=== PATIENT | female | born 1940 | race Two or more races ===

== ENCOUNTER 2024-06-05 13:24 | Emergency (ER) | payer OTHER, MEDICAID ==
[~2024-06-05] VITALS: Ht 167.6 cm; Wt 67.5 kg
[2024-06-05] MEDS: LIDOCAINE 1% HCL (LOCAL ANESTH.) INJ 20ML MDV IJ ONE (13:53)
--- NOTE | 2024-06-05 14:01 | ED.PDOC ---
Justin. trauma (HPI) HPI Comments A 84 YEAR OLD FEMALE PRESENTS TO THE ED WITH COMPLAINT OF LACERATION OF CHIN, RIGHT FOREHEAD AND BILATERAL HANDS AND RIGHT HAND PAIN S/P FALL. PATIENT STATES HE WAS WALKING TO GET HER MAIL EARLIER TODAY AND SHE ACCIDENTALLY FELL FORWARD. PATIENT REPORTS SHE HIT HER HEAD AND CHIN ON THE GROUND. PATIENT STATES SHE SUSTAINED A LACERATION ON HER CHIN, RIGHT FOREHEAD, AND BILATERAL HANDS. BLEEDING IS CONTROLLED AT THIS TIME. PATIENT REPORTS SHE HAS BEEN NOW EXPERIENCING A HEADACHE AND RIGHT HAND PAIN WELL PARENT PATIENT DENIES NECK INJURY, LOC, FEVER, CHILLS, SHORTNESS OF BREATH, CHEST PAIN, ABDOMINAL PAIN, NAUSEA, VOMITING, OR OTHER COMPLAINTS. NO OTHER SYMPTOMS OR MODIFYING FACTORS AT THIS TIME. PATIENT IS ALERT, ORIENTED X 4, AND HAS STEADY GAIT. Chief Complaint: Fall Injury Time Seen by MD: 13:32 Reviewed notes: Nurses Notes, Medications, Allergies Allergies: Coded Allergies: Gabapentin (Verified Allergy, Unknown, 06/05/24) Tetracycline (Verified Allergy, Unknown, 06/05/24) Home Meds Active Scripts Cephalexin Monohydrate (Cephalexin) 500 Mg Cap, 1 CAP PO TID, #30 CAP Prov:RASHMI BREWER 06/05/24 Acetaminophen (Tylenol 8 Hour Arthritis) 650 Mg Tab, 650 MG PO TID, #30 TAB Prov:RASHMI BREWER 06/05/24 Information Source: Patient Mode of Arrival: Wheelchair Severity: Moderate Timing: Hours Duration: Since onset, Hours Prehospital treatment: None Location: (R) Hand, Head (FOREHEAD), Other (CHIN) Location of laceration: Other (CHIN, RIGHT SIDE OF FOREHEAD) Mechanism: Fall Associated signs and symtoms: Headache Past Medical History PAST MEDICAL HISTORY: DM, ESRD, HTN Surgical History: Denies all surgeries ATTRACTION WORKER History: 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 History Family History Family History: Reviewed,noncontributory to illness Social History Smoker: Non-Smoker Alcohol: Denies ETOH Use Drugs: Denies Drug Use Lives In: Home Constitutional: denies: chills, diaphoresis, fatigue, fever, malaise, sweats, weakness, others EENTM: denies: blurred vision, double vision, ear bleeding, ear discharge, ear drainage, ear pain, ear ringing, eye pain, eye redness, hearing loss, mouth pain, mouth swelling, nasal discharge, nose bleeding, nose congestion, nose pain, photophobia, tearing, throat pain, throat swelling, voice changes, others Respiratory: denies: cough, hemoptysis, orthopnea, SOB at rest, shortness of breath, SOB with excertion, stridor, wheezing, others Cardiovascular: denies: chest pain, dizzy spells, diaphoresis, Dyspnea on exertion, edema, irregular heart beat, left arm pain, lightheadedness, palpitations, PND, syncope, others Gastrointestinal: denies: abdomen distended, abdominal pain, blood streaked bowels, constipated, diarrhea, dysphagia, difficulty swallowing, hematemesis, melena, nausea, poor appetite, poor fluid intake, rectal bleeding, rectal pain, vomiting, others Genitourinary: denies: abnormal vagina bleeding, burning, dyspareunia, dysuria, flank pain, frequency, hematuria, incontinence, pain, , vagina discharge, urgency, others Neurological: reports: headache; denies: dizziness, fainting, left sided numbness, left sided weakness, numbness, paresthesia, pre-existing deficit, right sided numbness, right sided weakness, seizure, speech problems, tingling, tremors, weakness, others Musculoskeletal: denies: back pain, gout, joint pain, joint swelling, muscle pain, muscle stiffness, neck pain, others Integumetry: reports: bruises (RIGHT FOREHEAD, CHIN AND BILATERAL DORSAL HAND. ), laceration (LACERATION OF RIGHT FOREHEAD, RIGHT HAND, AND CHIN); denies: change in color, change in hair/nails, dryness, lesions, lumps, rash, wounds, others Allergic/Immunocompromised: denies: Difficulty Healing, Frequent Infections, Hives, Itching, others Hematologic/Lymphatic: denies: anemia, blood clots, easy bleeding, easy bruising, swollen glands, others Endocrine: denies: excessive hunger, excessive sweating, excessive thirst, excessive urination, flushing, intolerance to cold, intolerance to heat, unexplained weight gain, unexplained weight loss, others Psychiatric: denies: anxiety, bipolar disorder, depression, hopeless, panic disorder, schizophrenia, sleepless, suicidal, others All Other Systems: Reviewed and Negative Physical Exam General Appearance: No Apparent Distress, Normal HEENT: Head (RIGHT FOREHEAD CONTUSION AND LACERATION, NO BONY TENDERNESS, SWELLING AND DEFORMITY. ), Normal ENT Inspection, PERRL/EOMI, Pharynx Normal, TMs Normal, Other (TENDERNESS ON LEFT SIDE FACE, NO REDNESS AND DEFORMITY. ) Neck: Full Range of Motion, Non-Tender, Normal, Normal Inspection Respiratory: Chest Non-Tender, Lungs Clear, No Accessory Muscle Use, No Respiratory Distress, Normal Breath Sounds Cardiovascular: No Edema, No JVD, No Murmur, No Gallop, Normal Peripheral Pulses, Regular Rate/Rhythm Breast Exam: Deferred Gastrointestinal: No Organomegaly, Non Tender, No Pulsatile Mass, Normal Bowel Sounds, Soft Genitalia: Deferred Pelvic: Deferred Rectal: Deferred Extremities: No calf tenderness, Normal capillary refill, Normal range of motion, No pedal edema, Tender (AND CONTUSION AND LACERATION BILATERAL DORSAL HAND, NO BONY TENDERNESS AND DEFORMITY. ), Other (NO TENDERNESS AND SWELLING ON RIGHT THUMB, NORMAL ROM. ) Musculoskeletal : Apperance: Normal Neurologic: Alert, vessel specialist II-XII nml as Tested, No Motor Deficits, Normal Affect, Normal Mood, No Sensory Deficits Cerebellar Function: Normal Reflexes: Normal Skin: Bruises (BILATERAL DORSAL HAND, RIGHT FOREHEAD AND CHIN, NO BONY TENDERNESS AND DEFORMITY. ), Dry, Lacerations (LACERATIONS OF BILATERAL HAND 2CM EACH, NO BLEEDING OR FB. LACERATION OF RIGHT FOREHEAD 2CM, AND CHIN 2CM. NO BLEEDING OR FB NOTED.), Warm Peripheral Pulses: 2+ carotid (R), 2+ carotid (L), 2+ Radial (R), 2+ Radial (L) Lymphatic: No Adenopathy Was a procedure done? Was a procedure done?: Yes Sedation Sedation?: No Laceration Repair : Location RIGHT FOREHEAD, BILATERAL HANDS, AND CHIN Length 3CM IRREGULAR RIGHT HAND, LEFT HAND 2CM, 2CM RIGHT FOREHEAD, 2CM CHIN TOTAL 9CM Anesthetic: Lidocaine, Without epi Laceration Repair Prep: Saline, by Irrigation Laceration Repair Wound Comple: epidermis/dermis repair Laceration Repair: Number of sutures (19), Skin, SQ, Size (5-0 ETHILON), Nylon, Simple, Gauze Informed consent obtained: No Risks, benefits, and alternati: Yes Images 1 - 2 - 1 - 2 - Differential Diagnosis Multiple Trauma: Closed Head Injury, Fractures, Cerebral Contusion, Abrasions, Contusion, Laceration Neck Injury: N/A X-Ray, Labs, Meds, VS Vital Signs Date Time Temp Pulse Resp B/P (MAP) Pulse Ox O2 Delivery O2 Flow Rate FiO2 06/05/24 13:43 97.2 90 16 142/70 (94) 90 97.2 06/05/24 13:43 90 16 99 Room Air 06/05/24 13:34 97.2 90 16 142/70 (94) 99 97.2 Current Medications Medications (Trade) Dose Ordered Sig/Ramin Route Start Time Stop Time Status Last Admin Acetaminophen (Tylenol Tablet Or Capsule) 1,000 mg ONCE ONCE PO 06/05/24 14:30 06/05/24 14:32 DC 06/05/24 14:39 EXAM: CT HEAD WITHOUT CONTRAST INDICATION: FALL TECHNIQUE: CT of the head without intravenous contrast. Radiation Dose Information: CT Dose: CTDI volume is 52.91 mGy. Dose-length product is 755.91 mGy*cm The dose indicators for CT are the volume Computed Tomography (CT) Dose Index (CTDIvol) and the Dose Length Product (DLP), and are measured in units of mGy and mGy-cm, respectively. These indicators are not patient dose, but values generated from the CT scanner acquisition factors. The report includes radiation exposure data for exposures received during this examination. COMPARISON: None FINDINGS: There is no evidence of acute intracranial hemorrhage, extra-axial collection, mass effect, midline shift, herniation or hydrocephalus. The ventricles, sulci and cisterns are age appropriate. The woodall-white differentiation is intact. Patchy periventricular and subcortical white matter hypoattenuation is nonspecific but may be related to small vessel ischemic disease. The visualized paranasal sinuses and mastoid air cells are clear. The surrounding soft tissues and osseous structures are unremarkable. IMPRESSION: 1. No acute intracranial hemorrhage 2. No CT findings of territorial ischemia. 3. No CT findings of displaced skull fracture. ATED BY: ANYA HUI Jr., DO DICTATED DATE/TIME: 06/05/241455 SIGNED BY: ANYA HUI Jr., SIGNED DATE/TIME: 06/05/241455 CC: CLINICAL INDICATION: FALL TECHNIQUE: 3 radiographic views of the right hand were obtained. Comparison: None FINDINGS/IMPRESSION: Questionable nondisplaced distal tuft fracture right thumb. Old healed fracture distal ulna. The visualized joint space is well maintained. The alignment is anatomical. There is no radiopaque foreign body. ATED BY: ANYA HUI Jr., DO DICTATED DATE/TIME: 06/05/24 1444 SIGNED BY: ANYA HUI Jr., SIGNED DATE/TIME: 06/05/24 1444 CC: CLINICAL INFORMATION: Fall injury. TECHNIQUE: Axial CT images of the maxillofacial region were obtained without contrast. Coronal and sagittal reformatted images were obtained, reviewed, and stored. One or more of the following dose reduction techniques were used: Automated exposure control. Adjustment of mA and/or kV according to patient size. CTDIvol = 56.4 mGy DLP = 925.01 mGy-cm COMPARISON: None FINDINGS: The pterygoid plates and zygomatic arches are intact. Sinus tsai and orbital tsai are intact. Nasal bones are intact. Acute, comminuted fracture of the left mandibular condyle with mild displaced fracture fragments along the medial aspect of the mandibular condyle near the temporomandibular joint. No pick abnormality identified in the orbits. Globes and orbital structures appear intact. No periorbital or orbital hemorrhage. Bilateral lens prostheses incidentally noted. Paranasal sinuses are clear. There is prominent soft tissue gas in the submandibular tissues likely sequela of laceration adjacent subcutaneous edema, likely ill-defined hemorrhage. Moderate soft tissue swelling and stranding along the right side of the face. IMPRESSION: 1. Acute, comminuted, mildly displaced fracture involving the left mandibular condyle adjacent to the left TMJ. 2. Soft tissue gas, suspected laceration submandibular region. 3. Moderate soft tissue swelling and stranding along the right side of the face. ATED BY: SAULO ESPINO DO DICTATED DATE/TIME: 06/05/24 1503 SIGNED BY: SAULO ESPINO DO SIGNED DATE/TIME: 06/05/24 1503 CC: X-Ray, Labs, Meds, VS Comment EXTERNAL MEDICAL RECORDS REVIEWED: [NONE] INDEPENDENT HISTORIANS: [NONE] SOCIAL DETERMINANTS OF HEALTH: [NONE] LABS ORDERED: NONE REVIEWED AND INTERPRETED RESULTS: NONE IMAGING ORDERED: CT MAXFACE, CT BRAIN, XR HAND RT TREATMENTS ORDERED: TYLENOL 1G PO PROCEDURES PERFORMED: LACERATION REPAIR CRITICAL CARE TIME: NONE I HAVE DISCUSSED THE PATIENT WITH THE ATTENDING PHYSICIAN DR. ROBERT AND HE AGREES WITH THE PATIENT'S PLAN OF CARE AND DISPOSITION. BASED ON HISTORY OF PRESENT ILLNESS, AND PHYSICAL EXAM, PATIENT WILL BE DISCHARGED HOME. DISCUSSED PLAN FOR DISCHARGE HOME WITH RX [[facility]]. MEDICATION WARNINGS GIVEN. SHARED DECISION MAKING: DISCUSSED WITH PATIENT THAT THEIR WORKUP WAS NORMAL. PATIENT INSTRUCTED TO FOLLOW UP WITH PRIMARY CARE PROVIDER IN 1-2 DAYS FOR RE- EVALUATION OF SYMPTOMS. PATIENT VERBALIZES UNDERSTANDING TO RETURN TO ED FOR NEW OR WORSENING SYMPTOMS OR IF FOLLOW UP WITH PCP CANNOT BE OBTAINED. PATIENT FEELS COMFORTABLE GOING HOME AT THIS TIME. ALL QUESTIONS ADDRESSED AT TIME OF DISCHARGE. Images Reviewed?: Images reviewed and evaluated by me Time of 1ST Reevaluation: 15:25 Reevaluation 1ST: Improved Patient Education/Counseling: Diagnosis, Treatment, Need For Follow Up Family Education/Counseling: Diagnosis, Treatment, Need For Follow Up Medical Screening: No EMC Exist At This Time Departure 1 Departure Time of Disposition: 15:25 Impression: Primary Impression: Fracture of left side of mandible Qualified Codes: S02.612A - Fracture of condylar process of left mandible, initial encounter for closed fracture Additional Impressions: Laceration of forehead without complication Qualified Codes: S01.81XA - Laceration without foreign body of other part of head, initial encounter Laceration of right hand Qualified Codes: S61.411A - Laceration without foreign body of right hand, initial encounter Laceration of left hand Qualified Codes: S61.412A - Laceration without foreign body of left hand, initial encounter Laceration of chin Qualified Codes: S01.81XA - Laceration without foreign body of other part of head, initial encounter Status post fall Disposition: HOME / SELF CARE / HOMELESS Condition: Stable Additional Instructions: FOLLOW-UP WITH PCP/ENT IN 1 TO 2 DAYS. TAKE MEDICATIONS PRESCRIBED. RETURN TO ED FOR ANY NEW OR WORSENING SYMPTOMS. e-Prescriptions Cephalexin Monohydrate (Cephalexin) 500 Mg Cap 1 CAP PO TID, #30 CAP Prov: RASHMI BREWER 06/05/24 Acetaminophen (Tylenol 8 Hour Arthritis) 650 Mg Tab 650 MG PO TID, #30 TAB Prov: RASHMI BREWER 06/05/24 Discharged With: Self, Relative Critical Care Note Critical Care Time?: No Stability Stability form required: No I personally scribed for RASHMI BREWER ([email or web address]) on 06/05/24 at 14:01. Electronically submitted by Darrel Menard ([email or web address]). I personally scribed for RASHMI BREWER ([email or web address]) on 06/05/24 at 14:22. Electronically submitted by Darrel Menard ([email or web address]). I personally scribed for RASHMI BREWER ([email or web address]) on 06/05/24 at 14:49. Electronically submitted by Darrel Menard ([email or web address]). I personally scribed for RASHMI BREWER ([email or web address]) on 06/05/24 at 15:11. Electronically submitted by Darrel Menard ([email or web address]). I personally scribed for RASHMI BREWER ([email or web address]) on 06/05/24 at 15:18. Electronically submitted by Darrel Menard ([email or web address]). I personally scribed for RASHMI BREWER ([email or web address]) on 06/05/24 at 15:23. Electronically submitted by Darrel Menard ([email or web address]). RASHMI BREWER Jun 05, 2024 14:01
[2024-06-05] MEDS: ACETAMINOPHEN 500 MG TAB or CAP PO ONE (14:39)
--- NOTE | 2024-06-05 14:47 | DVH ---
CLINICAL INDICATION: FALL TECHNIQUE: 3 radiographic views of the right hand were obtained. Comparison: None FINDINGS/IMPRESSION: Questionable nondisplaced distal tuft fracture right thumb. Old healed fracture distal ulna. The visualized joint space is well maintained. The alignment is anatomical. There is no radiopaque foreign body.
--- NOTE | 2024-06-05 14:58 | DVH ---
EXAM: CT HEAD WITHOUT CONTRAST INDICATION: FALL TECHNIQUE: CT of the head without intravenous contrast. Radiation Dose Information: CT Dose: CTDI volume is 52.91 mGy. Dose-length product is 755.91 mGy*cm The dose indicators for CT are the volume Computed Tomography (CT) Dose Index (CTDIvol) and the Dose Length Product (DLP), and are measured in units of mGy and mGy-cm, respectively. These indicators are not patient dose, but values generated from the CT scanner acquisition factors. The report includes radiation exposure data for exposures received during this examination. COMPARISON: None FINDINGS: There is no evidence of acute intracranial hemorrhage, extra-axial collection, mass effect, midline s hift, herniation or hydrocephalus. The ventricles, sulci and cisterns are age appropriate. The woodall-white differentiation is intact. Patchy periventricular and subcortical white matter hypoattenuation is nonspecific but may be related to small vessel ischemic disease. The visualized paranasal sinuses and mastoid air cells are clear. The surrounding soft tissues and osseous structures are unremarkable. IMPRESSION: 1. No acute intracranial hemorrhage 2. No CT findings of territorial ischemia. 3. No CT findings of displaced skull fracture.
--- NOTE | 2024-06-05 15:05 | DVH ---
CLINICAL INFORMATION: Fall injury. TECHNIQUE: Axial CT images of the maxillofacial region were obtained without contrast. Coronal and sa gittal reformatted images were obtained, reviewed, and stored. One or more of the following dose redu ction techniques were used: Automated exposure control. Adjustment of mA and/or kV according to patie nt size. CTDIvol = 56.4 mGy DLP = 925.01 mGy-cm COMPARISON: None FINDINGS: The pterygoid plates and zygomatic arches are intact. Sinus tsai and orbital tsai are i ntact. Nasal bones are intact. Acute, comminuted fracture of the left mandibular condyle with mild di splaced fracture fragments along the medial aspect of the mandibular condyle near the temporomandibul ar joint. No pick abnormality identified in the orbits. Globes and orbital structures appear intact. No periorbital or orbital hemorrhage. Bilateral lens prostheses incidentally noted. Paranasal sinuses are clear. There is prominent soft tissue gas in the submandibular tissues likely sequela of lacerat ion adjacent subcutaneous edema, likely ill-defined hemorrhage. Moderate soft tissue swelling and str anding along the right side of the face. IMPRESSION: 1. Acute, comminuted, mildly displaced fracture involving the left mandibular condyle adjacent to the left TMJ. 2. Soft tissue gas, suspected laceration submandibular region. 3. Moderate soft tissue swelling and stranding along the right side of the face.
[2024-06-05] MEDS ORDERED: CEPH500C PO (15:22)
[2024-06-05] MEDS ORDERED: ACET-1080 PO (15:22)
[2024-06-05 15:28] VITALS: BP 138/72; PULSE 82; RESP 16; O2SAT 97
[2024-06-05 15:36] VITALS: TEMP 98.3
== END 2024-06-05 15:38 | disposition home or self-care (01) ==
LOC: ER 13:24
DX: S02.612A Fracture of condylar process of left mandible, initial encounter for closed fracture (principal); S01.81XA Laceration without foreign body of other part of head, initial encounter; S61.412A Laceration without foreign body of left hand, initial encounter; S61.411A Laceration without foreign body of right hand, initial encounter; E11.22 Type 2 diabetes mellitus with diabetic chronic kidney disease; I12.0 Hypertensive chronic kidney disease with stage 5 chronic kidney disease or end stage renal disease; N18.6 End stage renal disease; Z88.1 Allergy status to other antibiotic agents; W19.XXXA Unspecified fall, initial encounter; Y93.01 Activity, walking, marching and hiking; Y92.89 Other specified places as the place of occurrence of the external cause; Y99.8 Other external cause status
CPT/HCPCS: 12002; 12013; 70450; 70486; 73130; 99284; J2003